=== PATIENT | female | born 1940 | race Caucasian/White ===

== ENCOUNTER → 2016-07-13 | Outpatient (CLI) | payer MEDICARE, BC ==
[2014-01-22 14:45] VITALS: BP 153/83
[~2016-07-13] MED LIST: CALCIUM CARBONATE; MIRALAX17 GM/DOSE PO; RITE AID ASPIRI81 M1 PO; SONATA 10MG10 MG PO; VITAMIN D32000 IU PO; ZESTORETIC 25 M1 TAB PO; ZOCOR20 MG PO
== END ==
LOC: RAD 08:50
DX: M75.51 Bursitis of right shoulder (principal); M19.011 Primary osteoarthritis, right shoulder

== ENCOUNTER → 2016-07-20 | Outpatient (CLI) | payer MEDICARE, BC ==
[2014-01-22 14:45] VITALS: BP 153/83
== END ==
LOC: RAD 10:19
DX: M25.511 Pain in right shoulder (principal)

== ENCOUNTER → 2017-01-24 | Outpatient (CLI) | payer MEDICARE, BC ==
[2014-01-22 14:45] VITALS: BP 153/83
[2017-01-24 07:35] LABS: HEMATOCRIT 44.7 % (37.0-47.0); HEMOGLOBIN 14.7 g/dL (12.5-16.0); MEAN CELL VOLUME 91 fl (78-100); MEAN CORPUSCULAR HEMOGLOBIN 30 pg (27-31); MEAN CORPUSCULAR HGB CONC 33 g/dL (33-37); MEAN PLATELET VOLUME 10.8 fl (7.4-10.4); PLATELET COUNT 346 K/mm3 (130-400); RED BLOOD COUNT 4.94 M/mm3 (4.10-5.30); RED CELL DISTRIBUTION WIDTH 13.3 % (11.5-14.5); WHITE BLOOD COUNT 6.8 K/mm3 (4.8-10.8)
[2017-01-24 07:40] LABS: ALBUMIN 4.1 g/dL (3.5-5.0); BUN/CREATININE RATIO 21.1 (6.0-26.0); CALCIUM 9.6 mg/dL (8.4-10.2); POTASSIUM 3.9 mmol/L (3.6-5.0); TOTAL BILIRUBIN 0.7 mg/dL (0.2-1.3); TOTAL PROTEIN 7.3 g/dL (6.3-8.2)
[2017-01-24 07:51] LABS: LYMPHOCYTE 30 % (20-51); MONOCYTE 12 % (3-10); NEUTROPHILS 54 % (42-75)
== END ==
LOC: LAB 07:10
PROVIDERS: Nurse Practitioner Family
DX: Z00.00 Encounter for general adult medical examination without abnormal findings (principal); I10 Essential (primary) hypertension; E78.2 Mixed hyperlipidemia

== ENCOUNTER → 2017-02-16 | Outpatient (CLI) | payer MEDICARE, BC ==
[2014-01-22 14:45] VITALS: BP 153/83
== END ==
LOC: MAMMO 08:38 → RAD 09:15
DX: Z12.31 Encounter for screening mammogram for malignant neoplasm of breast (principal)
CPT/HCPCS: G0202

== ENCOUNTER → 2018-02-06 | Outpatient (CLI) | payer MEDICARE, BC ==
[2014-01-22 14:45] VITALS: BP 153/83
[2018-02-06 09:34] LABS: HEMATOCRIT 40.6 % (37.0-47.0); HEMOGLOBIN 13.4 g/dL (12.5-16.0); MEAN CELL VOLUME 91 fl (78-100); MEAN CORPUSCULAR HEMOGLOBIN 30 pg (27-31); MEAN CORPUSCULAR HGB CONC 33 g/dL (33-37); PLATELET COUNT 425 K/mm3 (130-400); RED BLOOD COUNT 4.45 M/mm3 (4.10-5.30); RED CELL DISTRIBUTION WIDTH 13.3 % (11.5-14.5); WHITE BLOOD COUNT 5.6 K/mm3 (4.8-10.8)
[2018-02-06 09:41] LABS: ALBUMIN 3.9 g/dL (3.5-5.0); CALCIUM 9.6 mg/dL (8.4-10.2); POTASSIUM 4.1 mmol/L (3.6-5.0); TOTAL BILIRUBIN 0.6 mg/dL (0.2-1.3); TOTAL PROTEIN 6.3 g/dL (6.3-8.2)
[2018-02-06 10:15] LABS: LYMPHOCYTE 23 % (20-51); MONOCYTE 17 % (3-10); NEUTROPHILS 60 % (42-75)
== END ==
LOC: LAB 06:54
PROVIDERS: Family Medicine
DX: Z00.00 Encounter for general adult medical examination without abnormal findings (principal); I10 Essential (primary) hypertension; E55.9 Vitamin D deficiency, unspecified; R53.83 Other fatigue; R07.9 Chest pain, unspecified; E78.2 Mixed hyperlipidemia; E78.5 Hyperlipidemia, unspecified

== ENCOUNTER → 2020-05-18 | Outpatient (CLI) | payer MEDICARE, BC ==
[2014-01-22 14:45] VITALS: BP 153/83
[2020-05-18 11:11] LABS: HEMATOCRIT 43.1 % (37.0-47.0); MEAN CELL VOLUME 92 fl (78-100); MEAN CORPUSCULAR HEMOGLOBIN 30 pg (27-31); MEAN CORPUSCULAR HGB CONC 33 g/dL (33-37); MEAN PLATELET VOLUME 9.8 fl (7.4-10.4); PLATELET COUNT 425 K/mm3 (130-400); POTASSIUM 4.3 mmol/L (3.5-5.1); RED BLOOD COUNT 4.67 M/mm3 (4.10-5.30); RED CELL DISTRIBUTION WIDTH 13.1 % (11.5-14.5); WHITE BLOOD COUNT 7.3 K/mm3 (4.8-10.8)
[2020-05-18 11:13] LABS: CALCIUM 9.4 mg/dL (8.3-10.5)
[2020-05-18 11:14] LABS: TOTAL PROTEIN 6.9 g/dL (6.2-8.1)
[2020-05-18 11:16] LABS: TOTAL BILIRUBIN 0.6 mg/dL (0.2-1.2)
[2020-05-18 11:58] LABS: LYMPHOCYTE 24 % (20-51); MONOCYTE 8 % (3-10); NEUTROPHILS 68 % (42-75)
== END ==
LOC: LAB 09:42
PROVIDERS: Family Medicine
DX: Z01.812 Encounter for preprocedural laboratory examination (principal); E78.5 Hyperlipidemia, unspecified; E55.9 Vitamin D deficiency, unspecified

== ENCOUNTER → 2020-05-27 | Day surgery (SDC) | payer MEDICARE, BC ==
[2014-01-22 14:45] VITALS: BP 153/83
== END ==
LOC: MSO 07:09
DX: H25.13 Age-related nuclear cataract, bilateral (principal); H35.3130 Nonexudative age-related macular degeneration, bilateral, stage unspecified; H43.811 Vitreous degeneration, right eye; I10 Essential (primary) hypertension; E78.5 Hyperlipidemia, unspecified; E66.9 Obesity, unspecified; K59.09 Other constipation; E55.9 Vitamin D deficiency, unspecified; M81.0 Age-related osteoporosis without current pathological fracture; Z79.82 Long term (current) use of aspirin; Z87.891 Personal history of nicotine dependence; Z79.899 Other long term (current) drug therapy
CPT/HCPCS: 00142; J0171; J2250; V2632

== ENCOUNTER → 2020-07-01 | Day surgery (SDC) | payer MEDICARE, BC ==
[2014-01-22 14:45] VITALS: BP 153/83
== END ==
LOC: MSO 11:03
DX: H25.12 Age-related nuclear cataract, left eye (principal); Q43.0 Meckel's diverticulum (displaced) (hypertrophic); M19.90 Unspecified osteoarthritis, unspecified site; Z90.89 Acquired absence of other organs; Z90.710 Acquired absence of both cervix and uterus; Z79.82 Long term (current) use of aspirin; Z79.899 Other long term (current) drug therapy; Z90.49 Acquired absence of other specified parts of digestive tract; Z87.891 Personal history of nicotine dependence
CPT/HCPCS: 00142; J0171; J2250; V2632

== ENCOUNTER → 2020-11-23 | Outpatient (CLI) | payer MEDICARE, BC ==
[2020-11-23 11:37] LABS: BASO # 0.05 (0.02-0.10); EOS # 0.04 (0.04-0.40); EOS % 0.5 % (1.0-5.0); HEMATOCRIT 44.5 % (37.0-47.0); HEMOGLOBIN 14.8 g/dL (12.5-16.0); LYMPH# 1.57 (1.50-4.00); MEAN CELL VOLUME 92 fl (78-100); MEAN CORPUSCULAR HEMOGLOBIN 31 pg (27-31); MEAN CORPUSCULAR HGB CONC 33 g/dL (33-37); MEAN PLATELET VOLUME 9.5 fl (7.4-10.4); MONO # 1.03 (0.20-0.80); NEU # 5.36 (1.40-6.50); PLATELET COUNT 389 K/mm3 (130-400); RED BLOOD COUNT 4.84 M/mm3 (4.10-5.30); RED CELL DISTRIBUTION WIDTH 12.4 % (11.5-14.5); WHITE BLOOD COUNT 8.1 K/mm3 (4.8-10.8)
[2020-11-23 11:40] LABS: ALBUMIN 4.3 g/dL (3.4-4.8)
[2020-11-23 11:42] LABS: TOTAL PROTEIN 7.5 g/dL (6.2-8.1)
[2020-11-23 11:44] LABS: TOTAL BILIRUBIN 0.5 mg/dL (0.2-1.2)
== END ==
LOC: LAB 11:04
PROVIDERS: Family Medicine
DX: Z00.00 Encounter for general adult medical examination without abnormal findings (principal); E78.5 Hyperlipidemia, unspecified; E55.9 Vitamin D deficiency, unspecified; M25.552 Pain in left hip; M25.512 Pain in left shoulder

== ENCOUNTER → 2021-11-09 | Outpatient (CLI) | payer MEDICARE, BC ==
[2021-11-09 09:05] LABS: BASO # 0.06 K/mm3 (0.02-0.10); EOS # 0.12 K/mm3 (0.04-0.40); EOS % 1.4 % (1.0-5.0); HEMATOCRIT 45.3 % (37.0-47.0); HEMOGLOBIN 15.2 g/dL (12.5-16.0); LYMPH# 1.68 K/mm3 (1.50-4.00); MEAN CELL VOLUME 89 fl (78-100); MEAN CORPUSCULAR HEMOGLOBIN 30 pg (27-31); MEAN CORPUSCULAR HGB CONC 34 g/dL (33-37); MEAN PLATELET VOLUME 9.7 fl (7.4-10.4); MONO # 0.93 K/mm3 (0.20-0.80); NEU # 5.98 K/mm3 (1.40-6.50); PLATELET COUNT 418 K/mm3 (130-400); RED BLOOD COUNT 5.07 M/mm3 (4.10-5.30); RED CELL DISTRIBUTION WIDTH 12.9 % (11.5-14.5); WHITE BLOOD COUNT 8.8 K/mm3 (4.8-10.8)
[2021-11-09 09:13] LABS: ALBUMIN 4.3 g/dL (3.4-4.8); POTASSIUM 4.1 mmol/L (3.5-5.1)
[2021-11-09 09:14] LABS: CALCIUM 9.5 mg/dL (8.3-10.5)
[2021-11-09 09:16] LABS: TOTAL PROTEIN 7.1 g/dL (6.2-8.1)
[2021-11-09 09:17] LABS: TOTAL BILIRUBIN 0.7 mg/dL (0.2-1.2)
[2021-11-09 09:23] LABS: MAGNESIUM 1.99 mg/dL (1.60-2.60)
== END ==
LOC: RAD 08:57
PROVIDERS: Nurse Practitioner Primary Care
DX: Z00.00 Encounter for general adult medical examination without abnormal findings (principal); R10.9 Unspecified abdominal pain; R00.8 Other abnormalities of heart beat; E78.2 Mixed hyperlipidemia; I10 Essential (primary) hypertension; E55.9 Vitamin D deficiency, unspecified
CPT/HCPCS: Q9967

== ENCOUNTER → 2021-11-17 | Outpatient (CLI) | payer MEDICARE, BC | LOC: AMSURD 07:53 | DX: R00.8 Other abnormalities of heart beat (principal) ==

== ENCOUNTER → 2021-11-19 | Outpatient (CLI) | payer MEDICARE, BC | LOC: VAS 10:43 → RAD 11:00 | DX: I48.91 Unspecified atrial fibrillation (principal) ==

== ENCOUNTER → 2023-05-03 | Day surgery (SDC) | payer MEDICARE ==
[~2023-05-03] MED LIST changes: +Apraclonidine 1% Ophth Soln 0.1 ML BOTTLE OP SCH; +Balanced Salt Ophth Irrig 15 ML BOTTLE *BULK OP SCH; +Phenylephrine 10% Ophth Soln 5 ML BOTTLE *BULK OP SCH; +Proparacaine 0.5% Ophth Soln 15 ML BOTTLE *BULK OP SCH; +Tropicamide 1% Ophth Soln Bottle *BULK OP SCH
== END | disposition home or self-care (01) ==
LOC: MSO 09:50
DX: H26.492 Other secondary cataract, left eye (principal); Z90.49 Acquired absence of other specified parts of digestive tract

== ENCOUNTER → 2023-09-22 | Outpatient (CLI) | payer MEDICARE ==
[~2023-09-22] MED LIST changes: -Apraclonidine 1% Ophth Soln 0.1 ML BOTTLE OP SCH; -Balanced Salt Ophth Irrig 15 ML BOTTLE *BULK OP SCH; -Phenylephrine 10% Ophth Soln 5 ML BOTTLE *BULK OP SCH; -Proparacaine 0.5% Ophth Soln 15 ML BOTTLE *BULK OP SCH; -Tropicamide 1% Ophth Soln Bottle *BULK OP SCH
== END ==
LOC: RAD 12:09
DX: K56.690 Other partial intestinal obstruction (principal)